=== PATIENT | female | born 1965 | race Caucasian/White ===

== ENCOUNTER 2016-11-01 08:57 | Emergency (ER) | payer OTHER ==
[~2016-11-01] VITALS: Ht 160 cm; Wt 79.9 kg
[~2016-11-01 08:57] MED LIST: ADDERALL20 MG PO; B COMPLETE1 EACH PO; BUPROPION XL300 MG PO; CLONAZEPAM0.5 MG PO; CLONAZEPAM1 MG PO; DIOVAN160 MG PO; DIOVAN80 MG PO; ESTRADIOL0.5 MG PO; Ecotrin PO; Habitrol,Nicoderm CQ TD; KOMBIGLYZE XR1 EACH PO; LIPITOR40 MG PO; METOPROLOL SUCC50 MG PO; NAPROXEN500 MG PO; ULTRAM50 MG PO; VITAMIN D5000 UNIT PO; Vitamin D PO; WELLBUTRIN SR150 MG PO
[2016-11-01 10:34] LABS: ADD MIUA? YES; BILIRUBIN NEGATIVE; BLOOD NEGATIVE; COLOR AMBER ((YELLOW)); GLUCOSE (STRIP) NEGATIVE; KETONES 5; LEUKOCYTES NEGATIVE; NITRITE NEGATIVE; PROTEIN (STRIP) 30; SPECIFIC GRAVITY 1.025 (1.000-1.030); UROBILINOGEN 0.2 MG/DL (0.2-1.0)
[2016-11-01 10:46] LABS: BACTERIA NONE SEEN /HPF; EPITHELIAL CELLS 1+ /HPF; MUCUS TRACE /LPF; RED BLOOD CELLS 0-5 /HPF (0-5); UCUL ADDED? NO; WHITE BLOOD CELLS NONE SEEN /HPF (0-5)
[2016-11-01] MEDS ORDERED: FLEXERIL10 MG PO (11:01)
[2016-11-01] MEDS ORDERED: LIDODERM 5% P1 PATCH TD (11:01)
[2016-11-01] MEDS ORDERED: NAPROSYN500 MG PO (11:01)
[2016-11-01 11:11] VITALS: BP 139/83
== END 2016-11-01 11:13 | disposition home or self-care (01) ==
LOC: EME 08:57
PROVIDERS: Nurse Practitioner Family
DX: M54.5 Low back pain (principal); S39.012A Strain of muscle, fascia and tendon of lower back, initial encounter; X50.0XXA Overexertion from strenuous movement or load, initial encounter; Y92.89 Other specified places as the place of occurrence of the external cause; Y99.2 Volunteer activity; E11.9 Type 2 diabetes mellitus without complications; I10 Essential (primary) hypertension; Z98.84 Bariatric surgery status; F17.200 Nicotine dependence, unspecified, uncomplicated; Z88.8 Allergy status to other drugs, medicaments and biological substances; F12.10 Cannabis abuse, uncomplicated
CPT/HCPCS: 81003; 99281; 99284; J3010

== ENCOUNTER 2017-09-18 11:07 | Emergency (ER) | payer OTHER ==
[~2017-09-18] VITALS: Ht 160 cm; Wt 87.5 kg
[~2017-09-18 11:07] MED LIST changes: +FLEXERIL10 MG PO; +LIDODERM 5% P1 PATCH TD; +NAPROSYN500 MG PO
[2017-09-18 12:15] LABS: HEMATOCRIT 51.1 % (36.0-46.0); HEMOGLOBIN 17.3 G/DL (11.9-15.5); MCH 30.5 PG (29.0-34.0); MCHC 33.9 G/DL (30.0-36.0); PLATELET COUNT 326 K/uL (156-360); RBC DIS.WIDTH-CV 12.5 % (11.8-14.6); RBC DIS.WIDTH-SD 41.2 % (39-53); RED BLOOD COUNT 5.68 M/uL (3.80-5.20); WHITE BLOOD COUNT 16.1 K/uL (4.1-10.2)
[2017-09-18 12:27] LABS: CHLORIDE 102 mEq/L (99-109); POTASSIUM 4.2 mEq/L (3.7-5.4); SODIUM 139 mEq/L (136-147)
[2017-09-18 12:29] LABS: GLUCOSE 182 mg/dL (70-99)
[2017-09-18 12:33] LABS: GFR ESTIMATE (CALCULATED) > 59 mL/min/; UREA NITROGEN (BUN) 11 mg/dL (9-23)
[2017-09-18] MEDS ORDERED: NORCO 5/3251 TABLET PO (16:01)
[2017-09-18] MEDS ORDERED: CIPRO500 MG PO (16:01)
[2017-09-18] MEDS ORDERED: FLAGYL500 MG PO (16:01)
[2017-09-18] MEDS ORDERED: DIFLUCAN150 MG PO (16:25)
[2017-09-18 19:03] VITALS: BP 135/95
== END 2017-09-18 19:03 | disposition home or self-care (01) ==
LOC: EME 11:07
DX: K52.9 Noninfective gastroenteritis and colitis, unspecified (principal); E11.9 Type 2 diabetes mellitus without complications; I10 Essential (primary) hypertension; Z98.84 Bariatric surgery status; F17.200 Nicotine dependence, unspecified, uncomplicated; F32.9 Major depressive disorder, single episode, unspecified; Z88.8 Allergy status to other drugs, medicaments and biological substances
CPT/HCPCS: 74177; 80048; 85027; 86850; 86900; 86901; 99281; 99284; J2270; J7040